=== PATIENT | male | born 2000 | race Caucasian/White ===

== ENCOUNTER 2019-11-23 13:45 | Emergency (ER) | payer OTHER ==
[~2019-11-23] VITALS: Ht 182 cm; Wt 77.1 kg
--- NOTE | 2019-11-23 13:58 | ED Chest Pain ---
General Chief Complaint: Chest Pain Stated Complaint: CHEST PRESSURE / SOA Nursing Triage Note: ARRIVED VIA AMB TO ROOM 05 WITH COMPLAINS OF CHEST PRESSURE AND SOME SOA SINCE MONDAY. STATES IT HURTS TO MOVE AND TO TAKE A DEEP BREATH. Nursing Sepsis Screen: No Definite Risk Source: patient Exam Limitations: no limitations History of Present Illness Date Seen by Provider: Nov 23, 2019 Time Seen by Provider: 13:56 Initial Comments To ER with central chest tightness and pressure. This began about 48 hours ago. He initially thought it was a pulled muscle. It hurts to move and to take a deep breath. No cough no headache no sore throat no fever but has had chills. He has exercise-induced asthma but this feels different. No other complaints. History of lymphoma, completed treatment in 2009. Timing/Duration: changing over time Severity/Quality: moderate Location: central Radiation: no radiation Modifying Factors: worse with movement ASA po SHIPWRIGHT HELPER: No NTG SL SHIPWRIGHT HELPER: No Associated Symptoms: denies symptoms, shortness of breath Allergies and Home Medications Allergies Coded Allergies: No Known Drug Allergies (Unverified , 11/23/19) Patient Home Medication List Home Medication List Reviewed: Yes Review of Systems Review of Systems Constitutional: see HPI, chills; No dizziness, No fever, No malaise, No weakness EENTM: No Symptoms Reported Respiratory: Shortness of Air Cardiovascular: See HPI, Chest Pain; Denies Edema, Denies Irregular Heart Rate, Denies Lightheadedness, Denies Palpitations, Denies Syncope Genitourinary: No Symptoms Reported Musculoskeletal: no symptoms reported Skin: no symptoms reported Psychiatric/Neurological: No Symptoms Reported Endocrine: No Symptoms Reported Hematologic/Lymphatic: No Symptoms Reported Past Kiwgpnw-Fgwfsf-Yskjqp Hx Patient Social History Recent Foreign Travel: No Contact w/Someone Who Travel: No Recent Infectious Disease Expo: No Physical Exam Vital Signs Vital Signs - First Documented 11/23/19 13:53 Temp 36.6 Pulse 16 Resp 18 B/P (MAP) 129/93 (105) Pulse Ox 99 O2 Delivery Room Air Capillary Refill : Less Than 3 Seconds Height, Weight, BMI Height: '" Weight: lbs. oz. kg; 23.00 BMI Method: General Appearance: No Apparent Distress, WD/WN, Other (vitals are normal. Appears stable. No abnormalities on clinical exam. Heart rate is [address] segment changes suggestive of ischemia or pericarditis.) HEENT: PERRL/EOMI, TMs Normal Neck: Full Range of Motion, Normal Inspection Respiratory: Normal Breath Sounds, No Accessory Muscle Use, No Respiratory Distress Cardiovascular: Regular Rate, Rhythm, Normal Peripheral Pulses Gastrointestinal: Normal Bowel Sounds, Non Tender, Soft Extremity: Normal Capillary Refill, Normal Inspection Neurologic/Psychiatric: Alert, Oriented x3 Skin: Normal Color, Warm/Dry Progress/Results/Core Measures Results/Orders Lab Results Laboratory Tests Test 11/23/19 14:01 Range/Units White Blood Count 8.2 4.3-11.0 10^3/uL Red Blood Count 4.68 4.30-5.52 10^6/uL Hemoglobin 14.5 13.3-17.7 g/dL Hematocrit 43 40-54 % Mean Corpuscular Volume 93 80-99 fL Mean Corpuscular Hemoglobin 31 25-34 pg Mean Corpuscular Hemoglobin Concent 34 32-36 g/dL Red Cell Distribution Width 12.3 10.0-14.5 % Platelet Count 249 130-400 10^3/uL Mean Platelet Volume 9.8 9.0-12.2 fL Immature Granulocyte % (Auto) 0 % Neutrophils (%) (Auto) 65 42-75 % Lymphocytes (%) (Auto) 23 12-44 % Monocytes (%) (Auto) 8 0-12 % Eosinophils (%) (Auto) 3 0-10 % Basophils (%) (Auto) 1 0-10 % Neutrophils # (Auto) 5.4 1.8-7.8 10^3/uL Lymphocytes # (Auto) 1.9 1.0-4.0 10^3/uL Monocytes # (Auto) 0.6 0.0-1.0 10^3/uL Eosinophils # (Auto) 0.3 0.0-0.3 10^3/uL Basophils # (Auto) 0.0 0.0-0.1 10^3/uL Immature Granulocyte # (Auto) 0.0 0.0-0.1 10^3/uL Sodium Level 141 135-145 MMOL/L Potassium Level 3.8 3.6-5.0 MMOL/L Chloride Level 108 H 98-107 MMOL/L Carbon Dioxide Level 22 21-32 MMOL/L Anion Gap 11 5-14 MMOL/L Blood Urea Nitrogen 10 7-18 MG/DL Creatinine 0.99 0.60-1.30 MG/DL Estimat Glomerular Filtration Rate > 60 BUN/Creatinine Ratio 10 Glucose Level 112 H 70-105 MG/DL Calcium Level 9.1 8.5-10.1 MG/DL Corrected Calcium 8.7 8.5-10.1 MG/DL Total Bilirubin 0.5 0.1-1.0 MG/DL Aspartate Amino Transf (AST/SGOT) 15 5-34 U/L Alanine Aminotransferase (ALT/SGPT) 16 0-55 U/L Alkaline Phosphatase 53 40-136 U/L Troponin I < 0.028 <0.028 NG/ML C-Reactive Protein High Sensitivity 0.02 0.00-0.50 MG/DL Total Protein 7.3 6.4-8.2 GM/DL Albumin 4.5 3.2-4.5 GM/DL My Orders Orders - JUANIS MENDOZA APRN Cbc With Automated Diff (11/23/19 13:54) Hs C Reactive Protein (11/23/19 13:54) Erythrocyte Sedimentation Rate (11/23/19 13:54) Comprehensive Metabolic Panel (11/23/19 13:54) Fibrin Degradation Products (11/23/19 13:54) Ekg Tracing (11/23/19 13:54) Troponin I (11/23/19 13:54) BNP (11/23/19 13:54) Chest 1 View, Ap/Pa Only (11/23/19 13:54) Ketorolac Injection (Toradol Injection) (11/23/19 14:00) Medications Given in ED Current Medications Medications Dose Ordered Sig/Cristiana Route Start Time Stop Time Status Last Admin Dose Admin Ketorolac Tromethamine 15 mg ONCE ONCE IVP 11/23/19 14:00 11/23/19 14:01 DC 11/23/19 14:24 15 MG Vital Signs/I&O 11/23/19 13:53 Temp 36.6 Pulse 16 Resp 18 B/P (MAP) 129/93 (105) Pulse Ox 99 O2 Delivery Room Air Blood Pressure Mean: 105 Diagnostic Imaging Diagonstic Imaging: Xray Plain Films/CT/US/NM/MRI: chest Comments NAME: ROOPA VILLAFANA [facility] REC#: [id number] PT STATUS: REG ER : 2000 PHYSICIAN: JUANIS MENDOZA APRN ADMIT DATE: 11/23/19/ER Draft Date of Exam:11/23/19 CHEST 1 VIEW, AP/PA ONLY EXAM: Portable erect AP chest at 2:17 PM INDICATION: Chest pressure COMPARISON: There are no prior studies available for comparison. FINDINGS: The heart size is within normal limits. The lungs are clear. There is no evidence for pneumonia or for a pleural effusion. There is no sign of a pneumothorax. The mediastinum is not widened. The osseous structures are intact. IMPRESSION: There is no evidence for active disease. Dictated on workstation # [id number] Dict: 11/23/19 1425 Trans: 11/23/19 1430 [facility] [id number] Interpreted by: KATLYN TIJERINA MD Electronically signed by: Departure Impression Primary Impression: Pleuritic chest pain Disposition: 01 HOME, SELF-CARE Condition: Stable Departure-Patient Inst. Decision time for Depature: 14:41 Referrals: NO,LOCAL PHYSICIAN (PCP/Family) Primary Care Physician Patient Instructions: Pleuritic Chest Pain (DC) Add. Discharge Instructions: 1. Tylenol and ibuprofen for pain control 2. Follow-up with your doctor next week 3. Return to ER for any worsening. All discharge instructions reviewed with patient and/or family. Voiced understanding. JUANIS MENDOZA APRN Nov 23, 2019 13:58
[2019-11-23] MEDS ORDERED: KETOROLAC 30 MG/ML VIAL IVP ONE (14:00)
[2019-11-23 14:09] LABS: BASOPHILS % (AUTO) 1 % (0-10); EOSINOPHILS # (AUTO) 0.3 10^3/uL (0.0-0.3); EOSINOPHILS % (AUTO) 3 % (0-10); HEMATOCRIT 43 % (40-54); HEMOGLOBIN 14.5 g/dL (13.3-17.7); LYMPHOCYTES # (AUTO) 1.9 10^3/uL (1.0-4.0); LYMPHOCYTES % (AUTO) 23 % (12-44); MEAN CORPUSCULAR HEMOGLOBIN 31 pg (25-34); MEAN CORPUSCULAR HGB CONC 34 g/dL (32-36); MEAN CORPUSCULAR VOLUME 93 fL (80-99); MEAN PLATELET VOLUME 9.8 fL (9.0-12.2); MONOCYTES # (AUTO) 0.6 10^3/uL (0.0-1.0); MONOCYTES % (AUTO) 8 % (0-12); NEUTROPHILS # (AUTO) 5.4 10^3/uL (1.8-7.8); NEUTROPHILS % (AUTO) 65 % (42-75); PLATELET COUNT 249 10^3/uL (130-400); WHITE BLOOD COUNT 8.2 10^3/uL (4.3-11.0)
[2019-11-23 14:22] LABS: ALBUMIN 4.5 GM/DL (3.2-4.5); CHLORIDE 108 MMOL/L (98-107); POTASSIUM 3.8 MMOL/L (3.6-5.0); SODIUM 141 MMOL/L (135-145)
[2019-11-23 14:23] LABS: CALCIUM 9.1 MG/DL (8.5-10.1)
[2019-11-23 14:24] LABS: GLUCOSE 112 MG/DL (70-105); TOTAL PROTEIN 7.3 GM/DL (6.4-8.2)
[2019-11-23 14:25] LABS: CARBON DIOXIDE 22 MMOL/L (21-32)
[2019-11-23 14:26] LABS: BILIRUBIN,TOTAL 0.5 MG/DL (0.1-1.0)
[2019-11-23 14:28] LABS: ALKALINE PHOSPHATASE 53 U/L (40-136); CREATININE SERUM 0.99 MG/DL (0.60-1.30); GFR ESTIMATED > 60
[2019-11-23 14:29] LABS: BUN/CREATININE RATIO 10
[2019-11-23 14:31] LABS: ALANINE AMINOTRANSFERASE 16 U/L (0-55)
--- NOTE | 2019-11-23 14:31 | Diagnostic Imaging Report ---
EXAM: Portable erect AP chest at 2:17 PM INDICATION: Chest pressure COMPARISON: There are no prior studies available for comparison. FINDINGS: The heart size is within normal limits. The lungs are clear. There is no evidence for pneumonia or for a pleural effusion. There is no sign of a pneumothorax. The mediastinum is not widened. The osseous structures are intact. IMPRESSION: There is no evidence for active disease. Dictated by: Dictated on workstation # [id number]
[2019-11-23 14:43] LABS: ERYTHROCYTE SEDIMENTATION RATE 1 MM/HR (0-15)
[2019-11-23 14:52] VITALS: BP 115/70
== END 2019-11-23 14:56 | disposition home or self-care (01) ==
LOC: ER 13:47
DX: R07.89 Other chest pain (principal)
CPT/HCPCS: 36415; 71045; 80053; 83880; 84484; 85025; 85379; 85652; 86141; 93005

== ENCOUNTER 2021-01-13 20:14 | Emergency (ER) | payer OTHER ==
[~2021-01-13] VITALS: Ht 182 cm; Wt 79.0 kg
[2021-01-13 21:53] LABS: BASOPHILS # (AUTO) 0.1 10^3/uL (0.0-0.1); BASOPHILS % (AUTO) 1 % (0-10); EOSINOPHILS # (AUTO) 0.2 10^3/uL (0.0-0.3); EOSINOPHILS % (AUTO) 3 % (0-10); HEMATOCRIT 41 % (40-54); HEMOGLOBIN 13.8 g/dL (13.3-17.7); LYMPHOCYTES # (AUTO) 3.1 10^3/uL (1.0-4.0); LYMPHOCYTES % (AUTO) 35 % (12-44); MEAN CORPUSCULAR HEMOGLOBIN 31 pg (25-34); MEAN CORPUSCULAR HGB CONC 34 g/dL (32-36); MEAN CORPUSCULAR VOLUME 91 fL (80-99); MEAN PLATELET VOLUME 9.6 fL (9.0-12.2); MONOCYTES # (AUTO) 0.8 10^3/uL (0.0-1.0); MONOCYTES % (AUTO) 10 % (0-12); NEUTROPHILS # (AUTO) 4.5 10^3/uL (1.8-7.8); NEUTROPHILS % (AUTO) 52 % (42-75); PLATELET COUNT 256 10^3/uL (130-400); WHITE BLOOD COUNT 8.7 10^3/uL (4.3-11.0)
[2021-01-13 21:57] LABS: BILIRUBIN,URINE NEGATIVE (NEGATIVE); CLARITY,URINE CLEAR; COLOR,URINE ORANGE; GLUCOSE, URINE (UA) 1+ (NEGATIVE); KETONES,URINE TRACE (NEGATIVE); LEUKOCYTE ESTERASE ,URINE TRACE (NEGATIVE); NITRITE,URINE POSITIVE (NEGATIVE); PROTEIN,URINE 2+ (NEGATIVE)
[2021-01-13 22:02] LABS: ALBUMIN 4.6 GM/DL (3.2-4.5); CHLORIDE 106 MMOL/L (98-107); POTASSIUM 3.8 MMOL/L (3.6-5.0); SODIUM 142 MMOL/L (135-145)
[2021-01-13 22:03] LABS: CALCIUM 9.4 MG/DL (8.5-10.1)
[2021-01-13 22:04] LABS: GLUCOSE 100 MG/DL (70-105); TOTAL PROTEIN 7.4 GM/DL (6.4-8.2)
[2021-01-13 22:05] LABS: CARBON DIOXIDE 23 MMOL/L (21-32)
[2021-01-13 22:06] LABS: BILIRUBIN,TOTAL 0.7 MG/DL (0.1-1.0)
[2021-01-13 22:08] LABS: ALKALINE PHOSPHATASE 52 U/L (40-136); CREATININE SERUM 1.12 MG/DL (0.60-1.30); GFR ESTIMATED 83
[2021-01-13 22:09] LABS: WBC,URINE 0-2 /HPF
[2021-01-13 22:09] LABS: BUN/CREATININE RATIO 14
[2021-01-13 22:10] LABS: AMORPHOUS SEDIMENT,UR FEW AMOR PHOSPHATE /LPF; BACTERIA,URINE TRACE /HPF
[2021-01-13 22:11] LABS: ALANINE AMINOTRANSFERASE 18 U/L (0-55)
[2021-01-13] MEDS ORDERED: NS IV 1000 ML 1,000 ML IV SCH (22:30)
[2021-01-13] MEDS ORDERED: NS 100 ML (IVPB) BAG IV ONE (22:45)
[2021-01-13] MEDS ORDERED: HOLD METFORMIN - RECEIVED CONTRAST 20 ML VIAL IV SCH (22:45)
[2021-01-13] MEDS ORDERED: IOHEXOL 350 MG/ML 100 ML (OMNIPAQUE 350) VIAL IV ONE (22:45)
--- NOTE | 2021-01-13 22:57 | Diagnostic Imaging Report ---
PROCEDURE: CT abdomen and pelvis with contrast. TECHNIQUE: Multiple contiguous axial images were obtained through the abdomen and pelvis after administration of intravenous contrast. Auto Exposure Controls were utilized during the CT exam to meet ALARA standards for radiation dose reduction. All CT scans use one or more of the following dose optimizing techniques: automated exposure control, MA and/or KvP adjustment based on patient size and exam type or iterative reconstruction. INDICATION: Right lower quadrant abdominal pain. Urinating problems. COMPARISON: None. FINDINGS: Lung bases are clear. The liver, gallbladder, pancreas, spleen, adrenals, kidneys, collecting systems, bladder and appendix are negative. No free intraperitoneal air or fluid. No lymphadenopathy. No evidence of bowel obstruction. There is a large amount of stool throughout the colon and rectum. No acute osseous findings. IMPRESSION: 1. No acute CT findings in the abdomen or pelvis. Specifically, no evidence of appendicitis or an obstructive uropathy. 2. Large amount of stool throughout most of the colon and rectum suggesting constipation. Dictated by: Dictated on workstation # [id number]
[2021-01-13] MEDS ORDERED: KETOROLAC 30 MG/ML VIAL IVP ONE (23:45)
--- NOTE | 2021-01-13 23:55 | ED Abdominal Pain ---
General Chief Complaint: Abdominal/GI Problems Stated Complaint: ABDOMINAL PAIN Nursing Triage Note: PT ARRIVES TO ER WITH C/O SHARP RLQ PAIN THAT STARTED THIS MORNING BUT HAS BEEN GOING ON FOR THE PAST SEVEREL WEEKS. PT WAS SEEN AT [facility] AND SENT TO DR DENNISON FOR UROLOGY AND GIVEN ABX WITHOUT RELIEF. 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 oz. kg; 23.00 BMI Method: Progress/Results/Core Measures Results/Orders Lab Results Laboratory Tests Test 01/13/21 21:32 01/13/21 21:48 Range/Units White Blood Count 8.7 4.3-11.0 10^3/uL Red Blood Count 4.47 4.30-5.52 10^6/uL Hemoglobin 13.8 13.3-17.7 g/dL Hematocrit 41 40-54 % Mean Corpuscular Volume 91 80-99 fL Mean Corpuscular Hemoglobin 31 25-34 pg Mean Corpuscular Hemoglobin Concent 34 32-36 g/dL Red Cell Distribution Width 11.9 10.0-14.5 % Platelet Count 256 130-400 10^3/uL Mean Platelet Volume 9.6 9.0-12.2 fL Immature Granulocyte % (Auto) 0 % Neutrophils (%) (Auto) 52 42-75 % Lymphocytes (%) (Auto) 35 12-44 % Monocytes (%) (Auto) 10 0-12 % Eosinophils (%) (Auto) 3 0-10 % Basophils (%) (Auto) 1 0-10 % Neutrophils # (Auto) 4.5 1.8-7.8 10^3/uL Lymphocytes # (Auto) 3.1 1.0-4.0 10^3/uL Monocytes # (Auto) 0.8 0.0-1.0 10^3/uL Eosinophils # (Auto) 0.2 0.0-0.3 10^3/uL Basophils # (Auto) 0.1 0.0-0.1 10^3/uL Immature Granulocyte # (Auto) 0.0 0.0-0.1 10^3/uL Sodium Level 142 135-145 MMOL/L Potassium Level 3.8 3.6-5.0 MMOL/L Chloride Level 106 98-107 MMOL/L Carbon Dioxide Level 23 21-32 MMOL/L Anion Gap 13 5-14 MMOL/L Blood Urea Nitrogen 16 7-18 MG/DL Creatinine 1.12 0.60-1.30 MG/DL Estimat Glomerular Filtration Rate 83 BUN/Creatinine Ratio 14 Glucose Level 100 70-105 MG/DL Calcium Level 9.4 8.5-10.1 MG/DL Corrected Calcium 8.5-10.1 MG/DL Total Bilirubin 0.7 0.1-1.0 MG/DL Aspartate Amino Transf (AST/SGOT) 18 5-34 U/L Alanine Aminotransferase (ALT/SGPT) 18 0-55 U/L Alkaline Phosphatase 52 40-136 U/L C-Reactive Protein High Sensitivity 0.02 0.00-0.50 MG/DL Total Protein 7.4 6.4-8.2 GM/DL Albumin 4.6 H 3.2-4.5 GM/DL Urine Color ORANGE Urine Clarity CLEAR Urine pH 7.0 5-9 Urine Specific [place] 1.015 L 1.016-1.022 Urine Protein 2+ H NEGATIVE Urine Glucose (UA) 1+ H NEGATIVE Urine Ketones TRACE H NEGATIVE Urine Nitrite POSITIVE H NEGATIVE Urine Bilirubin NEGATIVE NEGATIVE Urine Urobilinogen >=8.0 < = 1.0 MG/DL Urine Leukocyte Esterase TRACE H NEGATIVE Urine RBC (Auto) NEGATIVE NEGATIVE Urine RBC NONE /HPF Urine WBC 0-2 /HPF Urine Crystals PRESENT H /LPF Urine Amorphous Sediment FEW KIRK PHOSPHATE H /LPF Urine Bacteria TRACE /HPF Urine Casts NONE /LPF Urine Mucus SMALL H /LPF Urine Culture Indicated YES My Orders Orders - DION NAGEL MD Ua Culture If Indicated (01/13/21 20:16) Cbc With Automated Diff (01/13/21 21:32) Comprehensive Metabolic Panel (01/13/21 21:32) Hs C Reactive Protein (01/13/21 21:32) Ed Iv/Invasive Line Start (01/13/21 21:32) Urine Culture (01/13/21 21:48) Ns Iv 1000 Ml (Sodium Chloride 0.9%) (01/13/21 22:30) Ct Abdomen/Pelvis W (01/13/21 22:17) Iohexol Injection (Omnipaque 350 Mg/Ml 1 (01/13/21 22:45) Received Contrast (Hold Metformin- Contr (01/13/21 22:45) Ns (Ivpb) (Sodium Chloride 0.9% Ivpb Bag (01/13/21 22:45) Ketorolac Injection (Toradol Injection) (01/13/21 23:45) Medications Given in ED Current Medications Medications Dose Ordered Sig/Cristiana Route Start Time Stop Time Status Last Admin Dose Admin Iohexol 100 ml ONCE ONCE IV 01/13/21 22:45 01/13/21 23:04 DC 01/13/21 22:44 100 ML Ketorolac Tromethamine 30 mg ONCE ONCE IVP 01/13/21 23:45 01/13/21 23:46 DC 01/13/21 23:49 30 MG Sodium Chloride 100 ml ONCE ONCE IV 01/13/21 22:45 01/13/21 23:04 DC 01/13/21 22:44 80 ML Vital Signs/I&O 01/13/21 20:45 Temp 37.1 Pulse 82 Resp 18 B/P (MAP) 136/76 (96) Pulse Ox 96 O2 Delivery Room Air 01/14/21 00:00 Intake Total 1000 ml Balance 1000 ml Blood Pressure Mean: 96 Departure Impression Primary Impression: Right lower quadrant abdominal pain Additional Impressions: Constipation Qualified Codes: K59.00 - Constipation, unspecified Dysuria Disposition: HOME, SELF-CARE Condition: Improved Departure-Patient Inst. Decision time for Depature: 23:53 Referrals: NO,LOCAL PHYSICIAN (PCP/Family) Primary Care Physician Patient Instructions: Constipation in Adults, Severe Abdominal Pain, Adult (DC) Add. Discharge Instructions: Drink plenty of clear liquids and adhere to a clear liquid diet for the next 24 hours. Clear liquids may include Jell-O, chicken broth, juices, sports drinks, etc. Gradually advance her diet to a high fiber diet with plenty of fruits, vegetables, and whole grains. You may continue using MiraLAX (polyethylene glycol) 2 or 3 times daily until you produce a couple of good bowel movements. Then use as needed. For pain you may use ibuprofen up to 600 mg every 6 hours as needed and/or Tylenol (acetaminophen) up to 1000 mg every 6 hours as needed. If you continue to have pain after allowing a week or two for pain to improve and after resolving constipation, please follow-up with your primary care prov ider for further evaluation. Call with questions or concerns. Return to care if you have worsening condition despite following these instructions or if you have additional urgent concerns. All discharge instructions reviewed with patient and/or family. Voiced understanding. Work/School Note: School/Childcare Release Date Seen in the Emergency Depar tment: Jan 14, 2021 Time Dismissed from Emergency Department: 00:15 Return to School: Jan 15, 2021 Restrictions: No Restrictions DION NAGEL MD Jan 13, 2021 23:55
[2021-01-14 00:09] VITALS: BP 116/61
--- OUTSIDE RECORDS SUMMARY | 2021-01-18 10:19 | XMS REPORT | Clinical Summary ---
Author Author [facility] Organization [facility] Address Unknown Phone Unavailable Care Team Providers Care Livestock Agent Name Role Phone Carie Jerez MD PCP Carie Jerez MD [phone] Source Comments Some departments are not documenting in the electronic medical record. If you d o not see the information that you expected, contact Release of Information in [facility] [employer] Information Management department at [phone] for further assistan ce in locating additional records.[facility] Allergies Comments Active Allergy Reactions Severity Noted Date Runny nose, sneezing, cough-spring and fall Seasonal Allergies SEE COMMENTS Low 09/28/2020 Medications End Date Status Medication Sig Dispensed Refills Start Date Active cetirizine (ZYRTEC) 10 mg Take 10 mg by 0 tablet mouth every morning. In Spring and Fall Active albuterol sulfate (PROAIR Inhale two 25.5 g 3 HFA) 90 mcg/actuation HFA puffs by 1 aerosol mouth into inhalerIndications: the lungs Chronic cough, Reactive every 6 hours airway disease without as needed for complication, unspecified Wheezing or asthma severity, Shortness of unspecified whether Breath. Shake persistent well before use. Active Problems Problem Noted Date Chronic cough 09/28/2020 Overview: Formatting of this note might be differ ent from the original. History of reactive airway triggered by URI / exercise and treated with albuterol. 09/2020 - CXR and PFTs WNL - nasal steroid for allergy symptoms - protective mask at work Chronic night sweats 09/28/2020 Overview: Formatting of this note might be differ ent from the original. Chronic stable night sweats. No weight changes / fevers / chills - close monitoring - labs and imaging today Fullness of supraclavicular fossa 09/28/2020 Overview: Formatting of this note might be differ ent from the original. Chronic monitoring right supraclavicula r fossa. 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 Patrick Saldivar (oncology) Prior Formal Survivorship Care before [facility]: [facility] prior to establishing with [facility] Transition [facility] / Dr. Jerez in 09/2020 - treatment summary loaded into survivo rship tab - targeted late effects monitoring / ed ucation / screening updated [facility] visit 09/2020 History of antineoplastic chemotherapy 09/16/2020 Overview: Formatting of this note is different fr om the original. Chemotherapy Primary Diagnosis: Leukemia: Acute lymp hoblastic leukemia Cytarabine SQ Mercaptopurine (6MP) Daunorubicin Methotrexate IT Asparaginase Dexamethasone Vincristine Cyclophosphamide 1,000 mg/m2 Doxorubicin 75 mg/m2 - targeted late effects monitoring / ed ucation / screening updated [facility] visit 09/2020 At risk for cardiac dysfunction 09/16/2020 Overview: Formatting of this note might be differ ent from the original. Per the current COG LTFU Guidelines, adonay ruelas is classified as high risk for cardiac dysfunction related to a histor y of therapeutic radiation to field potentially impacting heart tissue and/ or cardiotoxic chemotherapy. For patient's treatment history, an ech ocardiogram is advised every 5 years and PRN based on symptoms 08/2015 - echo WNL 09/2020 - echo WNL LVEF; mild MVR and TV R; mild enlargement RA - no acute cardiopulmonary symptoms Medical History Medical History Date Comments Other malignant neoplasm without specification of site (HCC) Social History Date Tobacco Use Types Packs/Day Years Used 2017 - 2020 Former Smoker Smokeless Tobacco: Never Used Comments Alcohol Use Standard Drinks/Week Yes 0 (1 standard drink = 0.6 o z pure alcohol) Sex Assigned at Date Recorded Not on file Last Filed Vital Signs Reading Time Taken Comments Vital Sign 120/68 09/28/2020 7:42 AM CDT Blood Pressure 61 09/28/2020 7:42 AM CDT Pulse 36.4 C (97.6 F) 09/28/2020 7:42 AM CDT Temperature 16 09/28/2020 7:42 AM CDT Respiratory Rate - - Oxygen Saturation - - Inhaled Oxygen Concentration 77.6 kg (171 lb) 09/28/2020 7:42 AM CDT Weight 177.8 cm (5' 10") 09/28/2020 7:42 AM CDT Height 24.54 09/28/2020 7:42 AM CDT Body Mass Index Plan of Treatment Health Maintenance Due Date Last Done Comments DTAP/TDAP VACCINES (1 - 11/14/2017 Tdap) PHYSICAL (COMPREHENSIVE) 11/14/2017 EXAM INFLUENZA VACCINE 09/27/2020 MENINGOCOCCAL VACCINE Completed 07/12/2018, (ACWY,Menactra) 11/27/2014 HPV VACCINES Completed 09/16/2019, 10/05/2018, 07/12/2018 HEPATITIS C SCREENING Completed 09/28/2020 HIV SCREENING Completed 09/28/2020 Results Not on filefrom Last 3 Months Insurance Type Payer Benefit Subscriber ID Effective Phone Address Plan / Dates Group Indemnity [facility] [id number] 2019-P [phone] 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
--- OUTSIDE RECORDS SUMMARY | 2021-01-18 10:19 | XMS REPORT | Clinical Summary ---
Author Author [facility] Organization [facility] Address Unknown Phone Unavailable Care Team Providers Care Crystalizer Operator Name Role Phone Tarun Hester MD PCP Allergies No known active allergies Medications End Date Status Medication Sig Dispensed Refills Start Date Active predniSONE (DELTASONE) 20 Take 20 mg by 0 MG tablet mouth daily. Active ISOtretinoin (MYORISAN) Take 30 mg by 0 30 MG capsule mouth 2 (two) times a day. Active Problems Not on file Social History Date Tobacco Use Types Packs/Day Years Used Never Smoker Smokeless Tobacco: Never Used Comments Alcohol Use Standard Drinks/Week No 0 (1 standard drink = 0.6 o z pure alcohol) Sex Assigned at Date Recorded Male 09/16/2018 7:51 AM CDT Last Filed Vital Signs Reading Time Taken Comments Vital Sign 111/71 08/27/2017 1:22 PM CDT Blood Pressure 91 08/27/2017 1:22 PM CDT Pulse 36.6 C (97.9 F) 08/27/2017 1:22 PM CDT Temperature 16 08/27/2017 1:22 PM CDT Respiratory Rate 99% 08/27/2017 1:31 PM CDT Oxygen Saturation - - Inhaled Oxygen Concentration 72.6 kg (160 lb) 08/27/2017 1:22 PM CDT Weight 182.9 cm (6') 08/27/2017 1:22 PM CDT Height 21.7 08/27/2017 1:22 PM CDT Body Mass Index Plan of Treatment Not on file Results Not on filefrom Last 3 Months Insurance Type Payer Benefit Subscriber ID Effective Phone Address Plan / Dates Group [employer]ETNA AETNA [id number] 2017-P [phone] [id number] [place] [phone] Magdalena Ingram Personal/F Mother 01/06/1970 [address] am[place] (Home) [place], [place] [address] Magdlaena Ingram Personal/F Mother 01/06/1970 [address] [place] (Home) [place], [place] [address] Advance Directives For more information, please contact: [phone] 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
== END 2021-01-14 00:08 | disposition home or self-care (01) ==
LOC: EDUNIT# 20:14 → ER 20:16
DX: K59.00 Constipation, unspecified (principal); R30.0 Dysuria
CPT/HCPCS: 36415; 74177; 80053; 81000; 85025; 86141; 87088